=== PATIENT | female | born 1990 ===

== ENCOUNTER 2018-07-07 14:30 | Inpatient (IN) | payer OTHER ==
[~2018-07-07] VITALS: Ht 170.2 cm; Wt 88.9 kg
[~2018-07-07 14:30] MED LIST: PRENATAL TABLE1 EAC2 PO
== END 2018-07-12 12:01 | DRG 807 ==
LOC: LDR 07-10 03:09 → OB/GYN 07-10 04:57 → LDR 07-19 14:30
PROC: 10E0XZZ Delivery of Products of Conception, External Approach (ICD-10-PCS; principal; 2018-07-10)
PROC: 0KQM0ZZ Repair Perineum Muscle, Open Approach (ICD-10-PCS; 2018-07-10)
PROC: 4A1HXCZ Monitoring of Products of Conception, Cardiac Rate, External Approach (ICD-10-PCS; 2018-07-10)
DX: O70.1 Second degree perineal laceration during delivery (principal); O42.02 Full-term premature rupture of membranes, onset of labor within 24 hours of rupture; Z37.0 Single live birth; Z3A.38 38 weeks gestation of pregnancy; Z22.330 Carrier of Group B streptococcus